=== PATIENT | male | born 1935 | race Caucasian/White ===

== ENCOUNTER 2016-12-28 08:08 | Emergency (ER) | payer MEDICARE ==
[2016-12-28] MEDS ORDERED: Lidocaine 1% w/Epinephrine 1:200K 30 ML VIAL ONE (08:38)
[2016-12-28 08:56] LABS: #Lymphocytes 0.9 thou/uL (1.20-3.40); #Monocytes 1.1 thou/uL (0.11-0.59); #Neutrophils 11.3 thou/uL (1.40-6.50); %Basophils 0.1 % (0.0-1.0); %Eosinophils 0.3 % (0.0-10.0); %Lymphocytes 6.4 % (21.0-51.0); %Monocytes 8.2 % (0.0-10.0); Mean Platelet Volume 7.4 fL (7.4-10.4); Red Blood Cell (RBC) Count 4.92 mill/uL (4.70-6.10); White Blood Cell (WBC) Count 13.3 thou/uL (4.8-10.8)
[2016-12-28 09:17] LABS: ALT (SGPT) 20 U/L (8-55); AST (SGOT) 20 U/L (5-34); Alkaline Phosphatase 88 U/L (40-150); Anion Gap 18 mmol/L (10-20); BUN (Urea Nitrogen) 23 mg/dL (8.4-25.7); Bilirubin, Total 0.4 mg/dL (0.2-1.2); CK (CPK) 144 U/L (30-200); Calc. Creatinine Clearance 0 mL/min (70-130); Calcium 8.8 mg/dL (7.8-10.44); Carbon Dioxide 20 mmol/L (23-31); Chloride 104 mmol/L (98-107); Estimated GFR-MDRD 74; Globulin 2.6 g/dL (2.4-3.5); Lipase 27 U/L (8-78); Protein, Total 6.5 g/dL (5.8-8.1)
[2016-12-28 09:18] LABS: Lactic Acid - Sepsis 2.6 mmol/L (0.5-2.2)
--- NOTE | 2016-12-28 09:23 | RAD ---
UPRIGHT PORTABLE CHEST 1 VIEW: HISTORY: An 81-year-old male with altered mental status, fall this morning, lacerated lip and right adan, diz ziness. FINDINGS: Heart size is within normal limits. The lungs are clear. No confluent pneumonia, overt edema, or p leural effusion. Bone demineralization and bilateral shoulder degenerative changes. IMPRESSION: No acute intrathoracic disease. No evidence of pneumonia or other acute process. POS: [facility]
[2016-12-28 09:24] LABS: PTT 29.8 SEC (22.9-36.1)
[2016-12-28 09:26] LABS: Troponin I Less than 0.010 ng/mL (< 0.028)
--- NOTE | 2016-12-28 09:41 | CT ---
CT HEAD NONCONTRAST: COMPARISON: No prior comparison. INDICATION: Altered mental status. FINDINGS: Parenchymal volume loss is present with compensatory dilatation of the ventricular system. There is a lacunar infarction involving the pulvinar of the left thalamus. No evidence of intracranial hemo rrhage, mass effect, or midline shift. Mild mucosal thickening in the paranasal sinuses is present. IMPRESSION: 1. No acute intracranial hemorrhage or mass effect. 2. Left thalamic lacunar infarction. 3. Parenchymal atrophy. POS: [facility]
[2016-12-28 10:35] LABS: Bilirubin Negative (Negative); Blood, Urine Small (Negative); Glucose, Urine (Dipstick) 500 mg/dL (Negative); Ketone, Urine Negative (Negative); Nitrite Negative (Negative); Protein, Urine (Dipstick) 30 mg/dL (Neg-Trace); Urobilinogen 0.2 mg/dL (0.2-1.0)
[2016-12-28 10:36] LABS: Bacteria/HPF None Seen HPF (None Seen); Hyaline Casts/LPF 0-3 HYALINE CAST LPF (0-3 Hyaline); RBC/HPF 0-3 HPF (0-3); Squamous Epithelial 0-3 HPF (0-3); WBC/HPF 0-3 HPF (0-3)
== END 2016-12-28 17:02 | disposition home or self-care (01) ==
LOC: ERS 08:08
DX: S81.811A Laceration without foreign body, right lower leg, initial encounter (principal); E86.0 Dehydration; R53.1 Weakness; I25.10 Atherosclerotic heart disease of native coronary artery without angina pectoris; E11.9 Type 2 diabetes mellitus without complications; I10 Essential (primary) hypertension; W06.XXXA Fall from bed, initial encounter
CPT/HCPCS: 12002; 36415; 36416; 70450; 71010; 80053; 81003; 81015; 82550; 82553; 83605; 83690; 83880; 84484; 85025; 85610; 85730; 87040; 93005; 96360

== ENCOUNTER 2017-08-03 14:37 | Outpatient (CLI) | payer MEDICARE ==
[~2017-08-03 14:37] MED LIST: Gadobenate Dimeglumine 529 MG/1 ML (20ML VIAL) ONE
--- NOTE | 2017-08-03 16:48 | MRI ---
MRI OF THE LUMBAR SPINE WITH AND WITHOUT CONTRAST 08/03/17 INDICATION: History of lumbar spinal surgery with chronic back pain. CONTRAST: 15 mL of Multihance. COMPARISON: Prior exam dated 02/26/06. FINDINGS: The visualized retroperitoneum, paravertebral soft tissues appear within normal limits. There is postprocedural change of the right hemilaminectomy at L5 and a left hemilaminectomy at L4. There is dextroscoliosis centered at L3. At L5-S1, there is advanced facet joint degenerative change. There is a broad based disc bulge. There is grade I anterolisthesis. There is loss of disc space height. Constellation of findings due to mod erate bilateral neural foraminal narrowing. This has worsened since the comparison exam. At L4-5, there is an asymmetric to the right disc bulge which has increased in size from the prior ex am. There is advanced facet joint degenerative change. There is severe right and moderate left neural foraminal narrowing. This has worsened since the prior exam. At L3-4, there is an asymmetric to the left disc osteophyte complex. There is facet hypertrophy. Cons tellation of findings induces moderate bilateral neural foraminal narrowing which is stable. At L2-3, there is an asymmetric to the left disc osteophyte complex causing moderate left lateral rec ess narrowing without definite impingement of the traversing left L3 nerve root. The disc bulge in ad dition to facet hypertrophy at this level induces severe and moderate to severe right neural foramina l narrowing. The neural foraminal narrowing has progressed from the prior exam. At L1-2, there is a disc osteophyte complex with facet hypertrophy and ligamentum flavum hypertrophy inducing mild central canal stenosis with mild right and moderate to severe left neural foramina. Thi s has progressed from the prior exam. The conus is seen to terminate at approximately T12-L1. No definite abnormal enhancement is demonstra amanda. There is some Modic end plate degenerative change with mild enhancement seen involving the lumba r spine. IMPRESSION: Worsening multilevel spondylosis with worsening neural foraminal narrowing seen at L5-S1, L4-5, L2-3 and L1-2. POS: [facility]
== END 2017-08-03 14:38 | disposition home or self-care (01) ==
LOC: SCSMRI 14:37
PROVIDERS: ATTEND Family Medicine
DX: M48.062 Spinal stenosis, lumbar region with neurogenic claudication (principal); M47.896 Other spondylosis, lumbar region; M99.83 Other biomechanical lesions of lumbar region
CPT/HCPCS: 72158; 82565; A9579

== ENCOUNTER 2018-06-14 17:59 | Emergency (ER) | payer MEDICARE ==
--- NOTE | 2018-06-14 18:56 | CT ---
BRAIN CT WITHOUT IV CONTRAST: 06/14/18 HISTORY: Injury from a fall. COMPARISON: 12/28/16. FINDINGS: Marked bilateral atrophy. No focal mass or midline shift. No intra or extra-axial hemorrhage. Sinuses and mastoids are clear. IMPRESSION: No significant acute intracranial process. No mass or bleed. Stable appearance. POS: [facility]
[2018-06-14 18:58] LABS: #Basophils 0.1 thou/uL (0.0-0.2); #Eosinphils 0.3 thou/uL (0.0-0.7); #Lymphocytes 1.9 thou/uL (1.20-3.40); #Monocytes 0.6 thou/uL (0.11-0.59); #Neutrophils 6.7 thou/uL (1.40-6.50); %Basophils 1.1 % (0.0-1.0); %Eosinophils 2.8 % (0.0-10.0); %Lymphocytes 19.9 % (21.0-51.0); %Monocytes 6.3 % (0.0-10.0); %Neutrophils 69.8 % (42.0-75.0); Anisocytosis SLIGHT = 6-15 cells (100X) (0-5/hpf); Elliptocytes SLIGHT = 2-5 cells (100X) (0-1/hpf); Hemoglobin 12.2 g/dL (14.0-18.0); Hypochromia SLIGHT = 6-15 cells (100X) (0-5/hpf); MDiff Complete? YES; Mean Corpuscular HGB CONC 32.4 g/dL (32.0-36.0); Mean Corpuscular Hemoglobin 24.4 pg (27.0-31.0); Mean Corpuscular Volume 75.3 fL (78.0-98.0); Mean Platelet Volume 8.2 fL (7.4-10.4); Microcytosis SLIGHT = 6-15 cells (100X) (0-5/hpf); Platelet Count 240 thou/uL (130-400); Platelet Morphology Comment Appears Adequate; Red Blood Cell (RBC) Count 4.99 mill/uL (4.70-6.10); Tear Drops SLIGHT = 2-5 cells (100X) (0-1/hpf); White Blood Cell (WBC) Count 9.6 thou/uL (4.8-10.8)
[2018-06-14 19:02] LABS: ALT (SGPT) 17 U/L (8-55); AST (SGOT) 17 U/L (5-34); Albumin 3.9 g/dL (3.4-4.8); Alkaline Phosphatase 87 U/L (40-150); Anion Gap 15 mmol/L (10-20); BUN (Urea Nitrogen) 25 mg/dL (8.4-25.7); Bilirubin, Total 0.3 mg/dL (0.2-1.2); Calc. Creatinine Clearance 0 mL/min (70-130); Calcium 9.3 mg/dL (7.8-10.44); Carbon Dioxide 24 mmol/L (23-31); Chloride 106 mmol/L (98-107); Estimated GFR-MDRD 54; Globulin 2.3 g/dL (2.4-3.5); Glucose 100 mg/dL (83-110); Potassium 3.8 mmol/L (3.5-5.1); Protein, Total 6.2 g/dL (5.8-8.1); Sodium 141 mmol/L (136-145)
[2018-06-14 19:52] LABS: Bilirubin Negative (Negative); Blood, Urine Negative (Negative); Clarity Clear (Clear); Glucose, Urine (Dipstick) Negative (Negative); Leukocyte Negative (Negative); Nitrite Negative (Negative); Protein, Urine (Dipstick) Negative (Neg-Trace); Urobilinogen 0.2 mg/dL (0.2-1.0); pH, Urine 5.5 (5.0-9.0)
== END 2018-06-14 20:09 | disposition home or self-care (01) ==
LOC: SCSER 17:59
DX: R51 Headache (principal); F03.90 Unspecified dementia, unspecified severity, without behavioral disturbance, psychotic disturbance, mood disturbance, and anxiety; I25.10 Atherosclerotic heart disease of native coronary artery without angina pectoris; E11.9 Type 2 diabetes mellitus without complications; I10 Essential (primary) hypertension; Z79.84 Long term (current) use of oral hypoglycemic drugs; Z79.899 Other long term (current) drug therapy; W19.XXXA Unspecified fall, initial encounter
CPT/HCPCS: 36415; 70450; 80053; 81003; 85025

== ENCOUNTER 2018-10-30 22:12 | Emergency (ER) | payer MEDICARE ==
--- NOTE | 2018-10-30 22:50 | RAD ---
XR Pelvis AP STANDARD HISTORY: Fall in shower with left-sided pain. COMPARISON: None. FINDINGS: The pelvic ring appears intact. There are arthritic changes lower lumbar spine and mild art hritic changes of both hips. The bones are demineralized. Postop prostatectomy changes are seen. IMPRESSION: No acute findings.
--- NOTE | 2018-10-30 22:51 | RAD ---
XR Hip Lt 2-3 View HISTORY: Left hip pain status post fall. COMPARISON: None. FINDINGS: The bones are demineralized. There are very mild arthritic changes of the hip. There are no signs of fracture or dislocation. IMPRESSION: No evidence of fracture.
== END 2018-10-30 23:40 | disposition home or self-care (01) ==
LOC: ERS 22:12
DX: S70.02XA Contusion of left hip, initial encounter (principal); E11.9 Type 2 diabetes mellitus without complications; I10 Essential (primary) hypertension; F03.90 Unspecified dementia, unspecified severity, without behavioral disturbance, psychotic disturbance, mood disturbance, and anxiety; I25.10 Atherosclerotic heart disease of native coronary artery without angina pectoris; W01.198A Fall on same level from slipping, tripping and stumbling with subsequent striking against other object, initial encounter; Z79.899 Other long term (current) drug therapy
CPT/HCPCS: 72170

== ENCOUNTER 2018-11-27 10:47 | Emergency (ER) | payer MEDICARE ==
[2018-11-27 11:22] LABS: #Eosinphils 0.2 thou/uL (0.0-0.7); #Lymphocytes 1.6 thou/uL (1.20-3.40); #Monocytes 0.8 thou/uL (0.11-0.59); #Neutrophils 10.1 thou/uL (1.40-6.50); %Basophils 0.1 % (0.0-1.0); %Eosinophils 1.9 % (0.0-10.0); %Lymphocytes 12.3 % (21.0-51.0); %Monocytes 6.2 % (0.0-10.0); %Neutrophils 79.5 % (42.0-75.0); Hemoglobin 12.7 g/dL (14.0-18.0); Mean Corpuscular HGB CONC 33.5 g/dL (32.0-36.0); Mean Corpuscular Hemoglobin 26.2 pg (27.0-31.0); Mean Platelet Volume 7.6 fL (7.4-10.4); Platelet Count 361 thou/uL (130-400); RBC Distribution Width 13.5 % (11.5-14.5); Red Blood Cell (RBC) Count 4.87 mill/uL (4.70-6.10); White Blood Cell (WBC) Count 12.7 thou/uL (4.8-10.8)
[2018-11-27 11:38] LABS: ALT (SGPT) 18 U/L (8-55); AST (SGOT) 14 U/L (5-34); Albumin 4.2 g/dL (3.4-4.8); Alkaline Phosphatase 127 U/L (40-110); Anion Gap 13 mmol/L (10-20); BUN (Urea Nitrogen) 16 mg/dL (8.4-25.7); Bilirubin, Total 0.5 mg/dL (0.2-1.2); Calc. Creatinine Clearance 0 mL/min (70-130); Calcium 9.1 mg/dL (7.8-10.44); Carbon Dioxide 28 mmol/L (23-31); Chloride 102 mmol/L (98-107); Estimated GFR-MDRD 73; Globulin 2.8 g/dL (2.4-3.5); Glucose 126 mg/dL (83-110); Lipase 38 U/L (8-78); Potassium 3.5 mmol/L (3.5-5.1); Sodium 139 mmol/L (136-145)
[2018-11-27] MEDS ORDERED: traMADol HCl 50 MG TAB ONE (11:55)
[2018-11-27 11:58] LABS: Bilirubin Negative (Negative); Blood, Urine Negative (Negative); Clarity Clear (Clear); Glucose, Urine (Dipstick) 30 mg/dL (Negative); Leukocyte Negative Leu/uL (Negative); Nitrite Negative (Negative); Protein, Urine (Dipstick) Negative (Neg-Trace); Urobilinogen Normal mg/dL (Less than 2)
--- NOTE | 2018-11-27 12:12 | CT ---
CT chest noncontrast CT abdomen and pelvis noncontrast CT thoracic spine noncontrast CT lumbar spine noncontrast HISTORY: Fall. Chest injury. Abdomen injury. Back injury. FINDINGS: Mild dependent atelectasis at the right lung base. No evidence of pneumothorax. Comminuted fracture involving the right clavicular head. Probable sharp, and corticated margins. Acute nondisplaced fractures involving the lateral aspect of the right ninth rib and the posterior as pect of the right 10th rib. Prominent degenerative changes throughout the thoracolumbar spine with S-shaped rotatory scoliotic cu rvature. Bilateral pars interarticularis defects at the L5 level with grade 1 spondylolisthesis. Lack of contrast limits evaluation of the soft tissues. There is calcification throughout the arteria l structures. Small hiatal hernia. Calcified granulomata of the liver. 2 tiny calcifications within nondilated calyces of the superior pole right kidney. Postoperative changes of the right colon. Withi n the anterior aspect of the right mid abdomen, anterior to the bowel, a well-circumscribed peripherally calcified oval internally soft tissue density mass is 3.5 cm length by 2.1 cm diameter. Focal area of dystrophic calcification within the anterior medial pelvic floor musculature. Surgical absence of the prostate gland. IMPRESSION: Nondisplaced right lower rib fractures. No evidence of pneumothorax. Right clavicular head fracture. Favored to be acute. Small hiatal hernia. Tiny nonobstructing right renal calculi. Atherosclerosis. Peripherally calcified lesion within the right lower quadrant anterior intra-abdominal fat. Uncertain etiology. Possibly a Meckel's diverticulum that has partially calcified. It is of doubtful clinical significance. 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
== END 2018-11-27 13:26 ==
LOC: ERS 10:47
DX: S22.41XA Multiple fractures of ribs, right side, initial encounter for closed fracture (principal); S42.031A Displaced fracture of lateral end of right clavicle, initial encounter for closed fracture; G30.9 Alzheimer's disease, unspecified; F02.80 Dementia in other diseases classified elsewhere, unspecified severity, without behavioral disturbance, psychotic disturbance, mood disturbance, and anxiety; E11.9 Type 2 diabetes mellitus without complications; I10 Essential (primary) hypertension; W18.30XA Fall on same level, unspecified, initial encounter
CPT/HCPCS: 71250; 74177; 80053; 81003; 83690; 85025; 96360

== ENCOUNTER 2019-02-23 22:05 | Emergency (ER) | payer MEDICARE ==
[2019-02-23 22:47] LABS: #Basophils 0.1 thou/uL (0.0-0.2); #Eosinphils 0.2 thou/uL (0.0-0.7); #Lymphocytes 1.8 thou/uL (1.20-3.40); #Monocytes 0.7 thou/uL (0.11-0.59); #Neutrophils 8.6 thou/uL (1.40-6.50); %Basophils 0.5 % (0.0-1.0); %Eosinophils 1.7 % (0.0-10.0); %Lymphocytes 15.8 % (21.0-51.0); %Monocytes 6.5 % (0.0-10.0); %Neutrophils 75.5 % (42.0-75.0); Hemoglobin 10.8 g/dL (14.0-18.0); Mean Corpuscular HGB CONC 32.3 g/dL (32.0-36.0); Mean Corpuscular Hemoglobin 24.5 pg (27.0-31.0); Mean Corpuscular Volume 75.9 fL (78.0-98.0); Mean Platelet Volume 7.5 fL (7.4-10.4); Platelet Count 271 thou/uL (130-400); RBC Distribution Width 14.2 % (11.5-14.5); Red Blood Cell (RBC) Count 4.41 mill/uL (4.70-6.10); White Blood Cell (WBC) Count 11.3 thou/uL (4.8-10.8)
--- NOTE | 2019-02-23 22:53 | RAD ---
EXAM: CHEST ONE VIEW HISTORY: Altered mental status. Agitation. COMPARISON: 12/28/2016 FINDINGS: Cardiac silhouette is magnified by projection and patient rotation. Pulmonary vasculature is within n ormal limits. Linear densities are seen at each lung base greater than left probably related to atelectasis. No consolidation or pleural fluid is identified. Right glenohumeral osteoarthropathy is present. Increased density lower mediastinum is likely related to hiatal hernia which was seen on CT thorax on 11/27/2018. No other interval change. IMPRESSION: 1. No acute cardiopulmonary process. 2. Small hiatal hernia lower mediastinum.
[2019-02-23 22:55] LABS: Bilirubin Negative (Negative); Blood, Urine Negative (Negative); Clarity Clear (Clear); Glucose, Urine (Dipstick) Normal (Negative); Leukocyte Negative Leu/uL (Negative); Nitrite Negative (Negative); Protein, Urine (Dipstick) Negative (Neg-Trace); Urobilinogen Normal mg/dL (Less than 2)
[2019-02-23 23:08] LABS: ALT (SGPT) 13 U/L (8-55); AST (SGOT) 11 U/L (5-34); Albumin 3.9 g/dL (3.4-4.8); Alkaline Phosphatase 118 U/L (40-110); Anion Gap 12 mmol/L (10-20); BUN (Urea Nitrogen) 22 mg/dL (8.4-25.7); Bilirubin, Total 0.4 mg/dL (0.2-1.2); Calc. Creatinine Clearance 0 mL/min (70-130); Calcium 9.1 mg/dL (7.8-10.44); Carbon Dioxide 27 mmol/L (23-31); Chloride 105 mmol/L (98-107); Estimated GFR-MDRD 68; Globulin 2.3 g/dL (2.4-3.5); Glucose 127 mg/dL (83-110); Protein, Total 6.2 g/dL (5.8-8.1); Sodium 140 mmol/L (136-145)
--- NOTE | 2019-02-23 23:16 | CT ---
NONCONTRAST CT HEAD: 02/23/19 HISTORY: Altered mental status. COMPARISON: 06/14/18. FINDINGS: Again noted is diffuse cerebral volume and cerebellar volume loss similar to the prior study. Mild ve ntricular prominence is again present which is probably related to greater central cerebral atrophy. There is stable remote lacunar infarctions in the right lentiform nucleus and left thalamus. No acut e cortical infarction, hemorrhage, mass effect, or midline shift is visualized. Mucosal thickening is seen in a few ethmoidal air cells on the left. There has been no other significant interval change f rom the prior exam. IMPRESSION: Stable chronic changes without evidence of an acute intracranial abnormality demonstrated. POS: [facility]
== END 2019-02-24 00:25 ==
LOC: ERS 22:05
DX: F03.90 Unspecified dementia, unspecified severity, without behavioral disturbance, psychotic disturbance, mood disturbance, and anxiety (principal); I10 Essential (primary) hypertension; E11.9 Type 2 diabetes mellitus without complications; I25.10 Atherosclerotic heart disease of native coronary artery without angina pectoris; Z95.818 Presence of other cardiac implants and grafts; Z79.84 Long term (current) use of oral hypoglycemic drugs; Z79.899 Other long term (current) drug therapy; Y04.2XXA Assault by strike against or bumped into by another person, initial encounter
CPT/HCPCS: 36415; 36416; 70450; 71045; 80053; 81003; 84484; 85025; 93005

== ENCOUNTER 2019-02-25 15:23 | Emergency (ER) | payer MEDICARE ==
[2019-02-25] MEDS ORDERED: Lorazepam 2 MG/ML VIAL ONE (15:57)
[2019-02-25 16:09] LABS: #Basophils 0.1 thou/uL (0.0-0.2); #Eosinphils 0.1 thou/uL (0.0-0.7); #Monocytes 0.8 thou/uL (0.11-0.59); #Neutrophils 10.7 thou/uL (1.40-6.50); %Basophils 0.6 % (0.0-1.0); %Lymphocytes 14.5 % (21.0-51.0); %Monocytes 5.7 % (0.0-10.0); %Neutrophils 78.2 % (42.0-75.0); Hemoglobin 11.6 g/dL (14.0-18.0); Mean Corpuscular HGB CONC 31.7 g/dL (32.0-36.0); Mean Corpuscular Hemoglobin 24.1 pg (27.0-31.0); Mean Corpuscular Volume 76.1 fL (78.0-98.0); Mean Platelet Volume 7.8 fL (7.4-10.4); Platelet Count 320 thou/uL (130-400); RBC Distribution Width 14.5 % (11.5-14.5); White Blood Cell (WBC) Count 13.7 thou/uL (4.8-10.8)
[2019-02-25 16:34] LABS: Bilirubin Negative (Negative); Blood, Urine Negative (Negative); Clarity Clear (Clear); Glucose, Urine (Dipstick) 200 mg/dL (Negative); Leukocyte Negative Leu/uL (Negative); Nitrite Negative (Negative); Protein, Urine (Dipstick) Negative (Neg-Trace); Urobilinogen Normal mg/dL (Less than 2)
[2019-02-25 16:36] LABS: Acetaminophen Less than 6.0 mcg/mL (10.0-30.0); Alcohol Less than 10 mg/dL (Less than 10); Salicylate Less than 8.0 mg/dL (15.0-30.0)
[2019-02-25 16:38] LABS: ALT (SGPT) 13 U/L (8-55); AST (SGOT) 12 U/L (5-34); Albumin 4.2 g/dL (3.4-4.8); Alkaline Phosphatase 129 U/L (40-110); Anion Gap 13 mmol/L (10-20); BUN (Urea Nitrogen) 21 mg/dL (8.4-25.7); Bilirubin, Total 0.4 mg/dL (0.2-1.2); Calc. Creatinine Clearance 0 mL/min (70-130); Calcium 9.5 mg/dL (7.8-10.44); Carbon Dioxide 25 mmol/L (23-31); Chloride 105 mmol/L (98-107); Estimated GFR-MDRD 76; Globulin 2.6 g/dL (2.4-3.5); Glucose 126 mg/dL (83-110); Potassium 4.3 mmol/L (3.5-5.1); Protein, Total 6.8 g/dL (5.8-8.1); Sodium 139 mmol/L (136-145)
[2019-02-25 16:45] LABS: Cocaine Metabolite Screen Not Detected (NotDetected); Medtox Reader # READER 4; Phencyclidine (PCP) Not Detected (NotDetected); THC/Cannabinoid Screen Not Detected (NotDetected); Tricyclic Screen Detected (NotDetected)
[2019-02-25 16:46] LABS: Amphetamine Not Detected (NotDetected); Barbiturates Screen Not Detected (NotDetected); Benzodiazepine Screen Not Detected (NotDetected); Medtox Control Line Valid? VALID (VALID); Methadone Not Detected (NotDetected); Methamphetamine Not Detected (NotDetected); Opiate Screen Not Detected (NotDetected); Oxycodone Screen Not Detected (NotDetected)
[2019-02-25] MEDS ORDERED: Ziprasidone 20 MG CAP ONE (17:15)
== END 2019-02-25 20:44 | disposition short-term general hospital (02) ==
LOC: ERS 15:23
DX: F03.90 Unspecified dementia, unspecified severity, without behavioral disturbance, psychotic disturbance, mood disturbance, and anxiety (principal); I25.10 Atherosclerotic heart disease of native coronary artery without angina pectoris; E11.9 Type 2 diabetes mellitus without complications; I10 Essential (primary) hypertension
CPT/HCPCS: 36415; 80053; 80306; 80307; 81003; 84443; 85025; 93005; 96372; J2060